=== PATIENT | female | born 1985 | race Caucasian/White ===

== ENCOUNTER 2017-07-16 06:02 | Inpatient (IN) | payer OTHER ==
[2017-07-16] MEDS ORDERED: LIDOCAINE 1% (PF) 10 MG/ML (30 ML SDV) SQ PRN (06:11)
[2017-07-16] MEDS ORDERED: METHYLERGONOVINE 0.2 MG/ML 1 ML AMP IM PRN (06:11)
[2017-07-16] MEDS ORDERED: TERBUTALINE 1 MG/ML VIAL SQ PRN (06:11)
[2017-07-16] MEDS ORDERED: OXYTOCIN 10 UNIT/ML 1 ML VIAL IM PRN (06:11)
[2017-07-16] MEDS ORDERED: OXYTOCIN 20 UNITS/1000 ML NS 1,000 ML IV SCH ×2 (06:11→13:46)
[2017-07-16] MEDS ORDERED: CARBOPROST TROMETHAMINE 250 MCG/ML 1 ML AMP IM PRN (06:11)
[2017-07-16 06:29] LABS: Basophils # (A) 0.1 k/uL (0-0.2); Basophils % (A) 1 %; Eosinophils # (A) 0.2 k/uL (0-0.7); Eosinophils % (A) 2 %; HCT 34.3 % (34.0-46.0); HGB 11.9 gm/dL (11.4-16.0); Lymphocytes # (A) 2.2 k/uL (1.0-4.8); Lymphocytes % (A) 18 %; MCH 33.3 pg (25.0-35.0); MCHC 34.6 g/dL (31.0-37.0); MCV 96.1 fL (80.0-100.0); Mean Platelet Volume 7.1; Monocytes # (A) 0.5 k/uL (0-1.0); Monocytes % (A) 4 %; Neutrophils # (A) 8.9 k/uL (1.3-7.7); Neutrophils % (A) 74 %; Platelet Count 194 k/uL (150-450); RBC 3.57 m/uL (3.80-5.40); RDW 13.4 % (11.5-15.5); WBC 12.1 k/uL (3.8-10.6)
[2017-07-16] MEDS: LACTATED RINGERS 1,000 ML IV SCH ×2 (06:29→11:10)
--- NOTE | 2017-07-16 06:31 | P.HPOB ---
History of Present Illness H&P Date: 07/16/17 Chief Complaint: Patient is requesting induction of labor This patient is a pleasant 31-year-old 4 para 2 female estimated date of confinement 07/20/2017 estimated gestational age 39-3/7 weeks who presents to labor and delivery for requested induction of labor. care has been uncomplicated. Review of Systems Gastrointestinal: Reports heartburn Genitourinary: Reports Menstruation: Reports amenorrhea Past Medical History Past Medical History: No Reported History History of Any Multi-Drug Resistant Organisms: None Reported Past Surgical History: No Surgical Hx Reported Past Anesthesia/Blood Transfusion Reactions: No Reported Reaction Past Psychological History: No Psychological Hx Reported Smoking Status: Never smoker Past Alcohol Use History: None Reported Past Drug Use History: None Reported Medications and Allergies Home Medications Medication Instructions Recorded Confirmed Type Pedi Multivit No.25/Folic Acid 1 tab PO DAILY 07/16/17 07/16/17 History [Flintstones Multivit Chew Tab] Allergies Allergy/AdvReac Type Severity Reaction Status Date / Time No Known Allergies Allergy Verified 07/16/17 06:09 Exam - Vital Signs Vital signs: Intake and Output 07/15/17 07/15/17 07/16/17 14:59 22:59 06:59 Other: Weight 82.1 kg Patient Weight 07/16/17 06:59 Weight 82.1 kg - OBG Physical Exam Abdomen: bowel sounds normal, no diffuse tenderness, no bruit present, no guarding noted, no hepatomegaly, no splenomegaly, no mass Vulva: both: normal Vagina: normal moisture, no discharge Cervix: no lesion (Cervix is 1-2 cm thick.), no discharge Uterus: enlarged (Fundal height is consistent with her gestational age.) Results blood work shows she is A positive, rubella nonimmune, hepatitis B was negative, RPR is nonreactive, ultrasounds have been normal, group B strep was negative, Glucola was normal. Assessment and Plan Assessment: This patient is a pleasant 31-year-old 4 para 2 female 39-3/7 weeks gestation who is admitted to labor and delivery for requested induction of labor. Plan is induction of labor and anticipate vaginal delivery. (1) Third trimester Current Visit: Yes Status: Acute Code(s): Z34.93 - ENCNTR FOR SUPRVSN OF NORMAL PREG, UNSP, THIRD TRIMESTER SNOMED Code(s): 83205550 (2) Elective induction of labor planned Current Visit: Yes Status: Acute Code(s): YWC9657 - SNOMED Code(s): 088172285
[2017-07-16 06:43] VITALS: BMI 30.1
[2017-07-16] MEDS ORDERED: fentaNYL (PF) 50 MCG/ML 5 ML AMP ONE (11:16)
[2017-07-16] MEDS ORDERED: SODIUM CHLORIDE 0.9% 100 ML BAG ONE (11:16)
[2017-07-16] MEDS ORDERED: BUPIVACAINE (PF) 0.25% 30 ML VIAL ONE (11:16)
[2017-07-16] MEDS ORDERED: HYDROCORTISONE 2.5% RECTAL CREAM 30 GM TUBE RECTAL PRN (13:46)
[2017-07-16] MEDS ORDERED: ACETAMINOPHEN TAB 325 MG TAB PO PRN (13:46)
[2017-07-16] MEDS ORDERED: WITCH HAZEL 1 EACH MED..PAD TOPICAL PRN (13:46)
[2017-07-16] MEDS ORDERED: SIMETHICONE 80 MG CHEWABLE PO PRN (13:46)
[2017-07-16] MEDS ORDERED: diphenhydrAMINE 50 MG/ML 1 ML VIAL IVP PRN (13:46)
[2017-07-16] MEDS ORDERED: LANOLIN CREAM 5 GM TUBE TOPICAL PRN (13:46)
[2017-07-16] MEDS ORDERED: BENZOCAINE/MENTHOL SPRAY 1 GM/SPRAY AEROSOL TOPICAL PRN (13:46)
[2017-07-16] MEDS ORDERED: MEASLES-MUMPS-RUBELLA VACC/PF 12,500 UNIT/0.5 ML VIAL SQ ONE (13:46)
[2017-07-16] MEDS ORDERED: diphenhydrAMINE 25 MG CAP PO PRN (13:46)
[2017-07-16] MEDS ORDERED: BISACODYL 10 MG SUPP RECTAL PRN (13:46)
[2017-07-16] MEDS ORDERED: ZOLPIDEM 5 MG TAB PO PRN (13:46)
--- NOTE | 2017-07-16 17:27 | P.PROBDLV ---
Vaginal Delivery Note - . Vaginal Delivery Note: Normal vaginal delivery viable female Apgars 9 and 9 at 1323 hrs. Please see dictated H&P for intimate details of this patient's admission. Brief summary this is a pleasant 31-year-old 4 para 2 female 39-3/7 weeks gestation who is admitted to labor and delivery for induction of labor. Patient is admitted she is 1 cm dilated has artificial rupture membranes for clear fluid. Labor is induced with Pitocin per protocol. She quickly progresses and does get an epidural for pain control. Patient gets to complete pushes the head to the perineum. Posterior perineum is supported we have controlled delivery of the 's head over the intact perineum. Mouth and nares are bulb suctioned and there is no evidence of a nuchal cord. With gentle downward traction we then have deliver the anterior and posterior shoulder and rest this infant's body. Is a vigorous viable female infant. Infant has spontaneous respirations and good cry. After delivery of the infant the umbilical cord is doubly clamped and cut appears to be trivascular. The placenta is then spontaneously delivered intact. Estimated blood loss is 100 mL. There is a first-degree posterior laceration with some extension to the right labia both of which were repaired with 3-0 Vicryl in the usual fashion. Good reapproximation is noted. All counts are correct 3. There are no complications. Infant and mother stable delivery room.
[2017-07-16] MEDS: SENNOSIDES-DOCUSATE SODIUM 1 EACH TAB PO SCH (20:29)
[2017-07-16] MEDS ORDERED: INFLUENZA VACCINE (6 MOS+) 60 MCG/0.5 ML SYRINGE IM ONE (20:30)
[2017-07-16] MEDS: IBUPROFEN 600 MG TAB PO PRN (23:53)
--- NOTE | 2017-07-17 06:32 | P.PNOBGVD ---
Subjective - Subjective Patient reports: Reports appetite normal, Reports voiding normally, Reports pain well controlled, Reports ambulating normally : doing well Objective - Latest Vital Signs Latest vital signs: Vital Signs Temp Pulse Resp BP Pulse Ox 07/17/17 04:00 98.2 F 78 18 105/68 98 07/17/17 00:00 98.0 F 73 18 107/75 100 07/16/17 20:00 98.0 F 72 18 117/71 100 07/16/17 15:15 98.4 F 82 18 106/76 98 07/16/17 15:06 98.6 F 90 18 113/72 98 07/16/17 14:48 90 18 144/56 07/16/17 14:33 95 18 127/69 07/16/17 14:18 18 07/16/17 14:03 99 18 126/79 07/16/17 13:45 96 18 124/71 07/16/17 13:30 101 H 20 130/60 07/16/17 06:33 97.9 F 96 16 124/77 100 Intake and Output 07/16/17 07/16/17 07/17/17 14:59 22:59 06:59 Intake Total 1000 Output Total 100 100 Balance 900 -100 Intake: Intake, IV Titration 1000 Amount Lactated Ringers 1,000 ml 1000 @ 125 mls/hr IV .Q8H XAVIER Rx#:[id number] Output: Estimated Blood Loss 100 100 Other: # Voids 1 1 - Exam Lungs: bilateral: normal Chest: Normal S1, Normal S2 Extremities: Present: normal Abdomen: Present: normal appearance, soft Uterus: Present: normal, firm - Labs Labs: Abnormal Lab Results - Last 24 Hours (Table) 07/16/17 Range/Units 06:20 WBC 12.1 H (3.8-10.6) k/uL RBC 3.57 L (3.80-5.40) m/uL Neutrophils # 8.9 H (1.3-7.7) k/uL Assessment and Plan Assessment: Patient is resting without complaints. She wishes to go home today. Vital signs are stable she is afebrile. Uterus is firm nontender she's having normal lochia. My impression this is a normal course. Plan is to continue routine care discharge home later today. (1) Third trimester Current Visit: Yes Status: Acute Code(s): Z34.93 - ENCNTR FOR SUPRVSN OF NORMAL PREG, UNSP, THIRD TRIMESTER SNOMED Code(s): 10807988 (2) Elective induction of labor planned Current Visit: Yes Status: Acute Code(s): [id number] - SNOMED Code(s): 329913567
--- NOTE | 2017-07-17 06:37 | P.DS ---
Providers Date of admission: 07/16/17 06:02 Expected date of discharge: 07/17/17 Attending physician: Khalif Hill Primary care physician: Stated None - Discharge Diagnosis(es) (1) Third trimester Current Visit: Yes Status: Acute (2) Elective induction of labor planned Current Visit: Yes Status: Acute Hospital Course: Please see dictated H&P for intimate details of this patient's admission. Brief summary this is a 31-year-old 4 para 2 female 39-1/2 weeks gestation admitted to labor and delivery for elective induction of labor. Patient is uncomplicated induction of labor quickly goes on to have a vaginal delivery viable female infant. Please see dictated delivery note. day 1 patient's felt be stable for discharge home follow up with me in 6 weeks. Procedures: Induction of labor and normal vaginal delivery. Patient Condition at Discharge: Good Plan - Discharge Summary New Discharge Prescriptions: New Ibuprofen [Motrin] 600 mg PO Q6HR PRN #40 tab PRN Reason: Mild Pain Or Fever >= 100.5 No Action Pedi Multivit No.25/Folic Acid [Flintstones Multivit Chew Tab] 1 tab PO DAILY Discharge Medication List Pedi Multivit No.25/Folic Acid [Flintstones Multivit Chew Tab] 1 tab PO DAILY [History] Ibuprofen [Motrin] 600 mg PO Q6HR PRN #40 tab 07/17/17 [Rx] Follow up Appointment(s)/Referral(s): Khalif Hill MD [STAFF PHYSICIAN] - 08/24/17 9:30 am Patient Instructions/Handouts: Vaginal Delivery (DC) Activity/Diet/Wound Care/Special Instructions: No intercourse or anything per vagina for 6 weeks. Please call if any fever, chills, excessive vaginal bleeding, and/or abdominal pain. Discharge Disposition: HOME SELF-CARE
[2017-07-17] MEDS: SENNOSIDES-DOCUSATE SODIUM 1 EACH TAB PO SCH (07:40)
[2017-07-17] MEDS: IBUPROFEN 600 MG TAB PO PRN (07:40)
[2017-07-17 08:46] VITALS: PULSE 85
[2017-07-17 08:48] VITALS: BP 107/62; RESP 16; TEMP 98.3
== END 2017-07-17 15:30 | disposition home or self-care (01) | DRG 775 ==
LOC: 4FBP 06:02
PROVIDERS: ADMIT Obstetrics & Gynecology; ATTEND Obstetrics & Gynecology
PROC: 10E0XZZ Delivery of Products of Conception, External Approach (ICD-10-PCS; principal; 2017-07-16)
PROC: 3E033VJ Introduction of Other Hormone into Peripheral Vein, Percutaneous Approach (ICD-10-PCS; 2017-07-16)
PROC: 10907ZC Drainage of Amniotic Fluid, Therapeutic from Products of Conception, Via Natural or Artificial Opening (ICD-10-PCS; 2017-07-16)
PROC: 00HU33Z Insertion of Infusion Device into Spinal Canal, Percutaneous Approach (ICD-10-PCS; 2017-07-16)
PROC: 3E0R3BZ Introduction of Anesthetic Agent into Spinal Canal, Percutaneous Approach (ICD-10-PCS; 2017-07-16)
DX: O70.0 First degree perineal laceration during delivery (principal); Z37.0 Single live birth; Z3A.39 39 weeks gestation of pregnancy
CPT/HCPCS: 85025; 87340; 88307; 90686; 90707

== ENCOUNTER 2024-03-05 06:13 | Day surgery (SDC) | payer OTHER ==
[2024-02-26 08:42] VITALS: BMI 25.0
[2024-03-05] MEDS: OXYMETAZOLINE 0.05% NASL SPRAY 1 SPRAY BOTTLE EA NOSTRIL PRN (07:00)
[2024-03-05] MEDS: LACTATED RINGERS 1,000 ML IV SCH (07:10)
[2024-03-05] MEDS: IV FLUID CONTINUATION 1,000 ML IV ONE ×3 (07:11→08:59)
[2024-03-05] MEDS: ONDANSETRON 4 MG/2 ML VIAL IVP ONE (07:15)
[2024-03-05] MEDS: DEXAMETHASONE SOD PHOSPHATE 4 MG/ML 1 ML VIAL IV ONE (07:15)
[2024-03-05] MEDS: FAMOTIDINE 20 MG/2 ML VIAL IV PRN (07:15)
[2024-03-05] MEDS ORDERED: MIDAZOLAM 2 MG/2 ML VIAL ONE (07:24)
[2024-03-05] MEDS ORDERED: fentaNYL (PF) 50 MCG/ML 2 ML AMP ONE (07:24)
[2024-03-05] MEDS ORDERED: PROPOFOL 10 MG/ML 20 ML VIAL IV ONE (07:24)
[2024-03-05] MEDS ORDERED: LIDOCAINE 1% INJ 10MG/ML (20 ML MDV) ONE (07:24)
[2024-03-05] MEDS ORDERED: SUCCINYLCHOLINE CHLORIDE 200 MG/10 ML VIAL IV ONE (07:24)
[2024-03-05] MEDS: LIDOCAINE 1%-EPI 1:100,000 20 ML VIAL SUBMUCOSAL ONE ×2 (07:41)
[2024-03-05] MEDS: BACITRACIN ZINC 500 UNIT/GM OINT 28.4 GM TUBE TOPICAL ONE ×2 (07:46→08:20)
--- NOTE | 2024-03-05 08:24 | P.OP ---
Date of Procedure: 03/05/24 Preoperative Diagnosis: deviated nasal septum Chronic sinusitis Postoperative Diagnosis: same Procedure(s) Performed: septoplasty Bilateral endoscopic sinus surgery including bilateral maxillary antrostomy with removal of tissue from the maxillary sinuses Anesthesia: YOMI Surgeon: Kody Pena Estimated Blood Loss (ml): 10 Pathology: other (nasal septal bone and cartilage and sinus contents) Condition: stable Disposition: PACU Indications for Procedure: is a 38-year-old white female with difficulties with chronic nasal obstruction and recurrent/chronic sinusitis. She's also had some blepharospasm on the left which had prompted a computed tomography scan of the head which was negative other than notable chronic sinusitis in the maxillary sinuses Operative Findings: septum deviated to the right with obstruction of the ostiomeatal complexes bi laterally. There is mucosal thickening and small polyps in the maxillary sinuses bilaterally right greater than left Description of Procedure: The patient was brought into the operative suite and placed in a supine position. The patient underwent induction of general anesthesia with oral endotracheal intubation without difficulty. The patient was prepped and draped in the usual aseptic fashion with the orbits in the operating field for monitoring to the case and the computed tomography scan was on the computer screen for review throughout the case. 1% lidocaine with 1 :100,000 epinephrine was infused submucosally into both sides of the nasal septum as well as the lateral nasal wall and anterior tips of the middle turbinates. inferior turbinoplasty was deferred as the inferior turbinates appeared normal A left hemitransfixion incision was then made with the mucoperichondrial and mucoperiosteal flap on the left elevated. The bony cartilaginous junction was d isarticulated and the mucoperiosteal flap on the right was elevated. Bony nasal septal deformities were removed with Charly forceps and an inferior cartilaginous strip was removed leaving a full 1.5 cm caudal strut. Checking intranasally this corrected the nasoseptal deformities and the hemitransfixion incision was closed with a running 4-0 chromic suture. Full 0 endoscopic examination is performed bilaterally. Beginning on the left, the middle turbinate was medialized. The maxillary ostium was located with a ballpoint probe and an infundibulotomy was performed followed by uncinectomy. The maxillary antrostomy was enlarged at the expense of the anterior and posterior fontanelle taking care anteriorly not to injure the lacrimal bone. The maxillary sinus was evaluated with 30 and 70 endoscope .[Abnormal appearing tissue was removed from the maxillary sinus]. Attention was then turned to the right where the procedures were followed as they had been on the left including medialization middle turbinate, infundibulotomy uncinectomy and maxillary antrostomy with removal of tissue from maxillary sinus [Nasopore nasal dressing was placed in the middle meatus bilaterally under direct visualization]. Bilateral Roy airway splints coated with bacitracin ointment were placed and sutured transseptally with a 4-0 nylon suture. The patient was suctioned in oral gastric fashion and was allowed to emerge from general anesthesia having tolerated procedure well and was extubated in the operating suite and transferred to the postoperative recovery area in satisfactory condition.
[2024-03-05] MEDS: HYDROmorphone 0.5 MG/0.5 ML SYRINGE IVP PRN (08:39)
[2024-03-05 08:43] VITALS: TEMP 97.2
[2024-03-05 09:53] VITALS: RESP 18
[2024-03-05 10:28] VITALS: PULSE 70
[2024-03-05] MEDS: SCOPOLAMINE 1 MG/72 HR PATCH TRANSDERM STA (10:48)
[2024-03-05 11:16] VITALS: BP 132/80
== END 2024-03-05 11:57 | disposition home or self-care (01) ==
LOC: OR 06:13
PROVIDERS: ATTEND Otolaryngology
CPT/HCPCS: 81025; 88300; 88305